=== PATIENT | male | born 1990 | race Caucasian/White ===

== ENCOUNTER 2019-12-03 19:49 | Emergency (ER) | payer BC, SELFPAY ==
[2019-12-03] MEDS ORDERED: Ketorolac Tromethamine 30 MG/ML VIAL ONE (20:19)
[2019-12-03] MEDS ORDERED: Adacel (T-DAP) 0.5 ML SYRINGE ONE (20:19)
[2019-12-03] MEDS ORDERED: Bacitracin 1 PK ONE (20:21)
[2019-12-03] MEDS ORDERED: Amoxicillin/Potassium Clav 875 MG TAB ONE (20:43)
--- NOTE | 2019-12-04 07:44 | RAD ---
LEFT HUMERUS 2 VIEWS: Date: 12/03/2019 An opaque marker is placed at the entry site. Soft tissue air is seen in this location, but no opaque foreign bodies seen. The humerus itself appears intact. IMPRESSION: Soft tissue laceration with soft tissue air. POS: HOME
== END 2019-12-03 20:45 | disposition home or self-care (01) ==
LOC: BURERS 19:49
DX: S41.152A Open bite of left upper arm, initial encounter (principal); S41.112A Laceration without foreign body of left upper arm, initial encounter; Z23 Encounter for immunization; W54.0XXA Bitten by dog, initial encounter; F17.210 Nicotine dependence, cigarettes, uncomplicated
CPT/HCPCS: 90471; 90715; 96372; J1885